=== PATIENT | female | born 1990 | race African-American/Black ===

== ENCOUNTER 2024-10-10 12:46 | Inpatient (IN) | payer MEDICAID, OTHER, SELFPAY ==
[2024-10-10] MEDS ORDERED: Lidocaine 1% (PF) 30 ML VIAL SC PRN (14:17)
[2024-10-10] MEDS ORDERED: hydrALAZINE 20 MG/ML VIAL SLOW IVP PRN (14:17)
[2024-10-10] MEDS ORDERED: Ibuprofen 800 MG TAB PO PRN (14:17)
[2024-10-10] MEDS ORDERED: Ondansetron PF 4 MG/2 ML Vial IVP PRN (14:17)
[2024-10-10] MEDS ORDERED: HYDROcodone/Acetaminophen 5/325 mg Tablet PO PRN (14:17)
[2024-10-10] MEDS ORDERED: Tranexamic Acid 1,000 MG/10 ML VIAL IVP PRN (14:17)
[2024-10-10] MEDS ORDERED: Carboprost 250 MCG/ML AMP IM PRN (14:17)
[2024-10-10] MEDS ORDERED: Diphenoxylate HCl/Atropine Tablet PO PRN (14:17)
[2024-10-10] MEDS ORDERED: Methylergonovine 0.2 MG/ML VIAL IM PRN (14:17)
[2024-10-10] MEDS ORDERED: Oxytocin 30 units/NS 500 ML 500 ML IV SCH (14:30)
[2024-10-10 14:34] LABS: Hematocrit 36.0 % (34.9-44.5); Hemoglobin 11.4 g/dL (12.0-15.5); Mean Corpuscular Hemoglobin 24.0 pg (27.0-33.0); Mean Corpuscular Volume 75.8 fL (81.6-98.3); Platelet Count 230 10x3/uL (150-450); Red Blood Cell (RBC) Count 4.75 10x6/uL (3.90-5.03); White Blood Cell (WBC) Count 5.89 10x3/uL (3.5-10.5)
[2024-10-10 15:01] VITALS: BMI 24.8
[2024-10-10 15:03] LABS: Hep B Surf Ag - L&D Non-Reactive S/CO (NonReactive)
[2024-10-10 15:05] LABS: Syphilis Antibody Index 0.06 S/CO (<1.00 Non-Reactive)
[2024-10-10] MEDS: Oxytocin 30 units/NS 500 ML 500 ML IV SCH (15:52)
[2024-10-10] MEDS: Acetaminophen 500 MG TAB PO PRN (20:06)
[2024-10-11] MEDS ORDERED: Bicitra 30 ML UDCUP PO PRN (11:57)
[2024-10-11] MEDS: CEFAZOLIN 2 GM VIAL ONE (11:59)
[2024-10-11] MEDS ORDERED: Azithromycin 500 MG in Sodium Chloride 0.9% 250 ML 250 ML IVPB SCH (12:00)
[2024-10-11] MEDS: Famotidine/PF 20 mg/2ml Vial SLOW IVP PRN (12:02)
[2024-10-11] MEDS ORDERED: Meperidine HCl/PF 25 MG (1 mL) VIAL SLOW IVP PRN (13:17)
[2024-10-11] MEDS ORDERED: diphenhydrAMINE 50 MG/ML VIAL IVP PRN (13:17)
[2024-10-11] MEDS ORDERED: HYDROmorphone 0.5 MG/0.5 ML SYRINGE SLOW IVP PRN (13:17)
[2024-10-11] MEDS ORDERED: Ondansetron PF 4 MG/2 ML Vial IVP PRN ×3 (13:17→17:04)
[2024-10-11] MEDS ORDERED: Ketorolac Tromethamine 30 MG (1 mL) VIAL IVP PRN (13:17)
[2024-10-11] MEDS ORDERED: Communication Order-Pharmacy FS SCH (13:30)
[2024-10-11] MEDS: Ketorolac Tromethamine 30 MG (1 mL) VIAL IVP SCH ×2 (14:04→20:35)
[2024-10-11] MEDS: Simethicone Chewable 80 MG TAB PO PRN (14:04)
[2024-10-11] MEDS ORDERED: Bisacodyl 10 MG SUPP PR PRN (17:04)
[2024-10-11] MEDS ORDERED: Lanolin Ointment 7 GM TUBE TOP PRN (17:04)
[2024-10-11] MEDS ORDERED: hydrALAZINE 20 MG/ML VIAL SLOW IVP PRN (17:04)
[2024-10-11] MEDS ORDERED: diphenhydrAMINE 25 MG CAP PO PRN (17:04)
[2024-10-11] MEDS: Dexamethasone 10 MG/ML VIAL ONE (20:23)
[2024-10-11] MEDS: Ondansetron PF 4 MG/2 ML Vial ONE (20:23)
[2024-10-11] MEDS: Azithromycin 500 MG VIAL ONE (20:23)
[2024-10-11] MEDS: Oxytocin 10 UNITS/ML VIAL ONE ×2 (20:23→20:24)
[2024-10-11] MEDS: Hepatitis B Vaccine 10 MCG/0.5 ML SYR ONE (20:24)
[2024-10-11] MEDS: Erythromycin Base 0.5% Oint 1 GM TUBE ONE (20:24)
[2024-10-11] MEDS: PHENYLEPHRINE-NS 100 MCG/ML 10 ML SYRINGE ONE (20:24)
[2024-10-11] MEDS: Ferrous Sulfate 325 MG TAB PO SCH (21:36)
[2024-10-12] MEDS ORDERED: Meperidine HCl/PF 25 MG (1 mL) VIAL IM PRN (01:30)
[2024-10-12 05:47] LABS: Hematocrit 26.0 % (34.9-44.5); Hemoglobin 8.5 g/dL (12.0-15.5); Mean Corpuscular Hemoglobin 24.4 pg (27.0-33.0); Mean Corpuscular Volume 74.5 fL (81.6-98.3); Platelet Count 203 10x3/uL (150-450); Red Blood Cell (RBC) Count 3.49 10x6/uL (3.90-5.03); White Blood Cell (WBC) Count 9.84 10x3/uL (3.5-10.5)
[2024-10-12] MEDS: Ketorolac Tromethamine 30 MG (1 mL) VIAL IVP SCH (08:30)
[2024-10-12] MEDS: HYDROcodone/Acetaminophen 5/325 mg Tablet PO PRN ×2 (09:36→13:04)
[2024-10-12] MEDS: Ibuprofen 800 MG TAB PO SCH (13:05)
[2024-10-12] MEDS: Boostrix 0.5 ML (Tdap) VIAL (>/=7 yrs of age) IM ONE (16:50)
[2024-10-14 08:39] VITALS: BP 122/80; TEMP 97.8
[2024-10-14] MEDS: HYDROcodone/Acetaminophen 10/325 mg Tablet PO PRN (10:02)
== END 2024-10-14 18:30 | disposition home or self-care (01) | DRG 788 ==
LOC: CSHLD/OP 12:46 → CSHLD 15:02 → CSHPP 10-11 20:02
PROVIDERS: ADMIT Family Medicine; ATTEND Family Medicine
PROC: 10D00Z1 Extraction of Products of Conception, Low, Open Approach (ICD-10-PCS; principal; 2024-10-11)
PROC: 4A1HXCZ Monitoring of Products of Conception, Cardiac Rate, External Approach (ICD-10-PCS; 2024-10-11)
DX: O48.0 Post-term pregnancy (principal); Z79.899 Other long term (current) drug therapy; O76 Abnormality in fetal heart rate and rhythm complicating labor and delivery; O61.8 Other failed induction of labor; Z37.0 Single live birth; Z3A.40 40 weeks gestation of pregnancy
CPT/HCPCS: 36415; 51702; 85027; 86780; 86850; 86900; 86901; 87340; 99285; C1889; J1100; J1308; J1885; J2274; J2405; J2590; J3010; J7120